=== PATIENT | male | born 1955 | race Caucasian/White ===

== ENCOUNTER 2019-08-11 15:39 | Inpatient (IN) | payer OTHER ==
[~2019-08-11] VITALS: Ht 185.4 cm; Wt 112.3 kg
[~2019-08-11 15:39] MED LIST: ERGO400 PO; METF500 PO; Norco 10-325 T1 EACH PO; OMEPRAZOLE20 MG PO; TAMS.4ER PO
--- NOTE | 2019-08-15 06:53 | NUR ---
INTO [facility] ADMISSION STARTED. Ambulatory in Day Surgery History, Chart, Medications and Allergies reviewed before start of procedure.Lungs clear T/O to Auscultation. Patient confirms NPO status and agrees with scheduled surgery.
--- NOTE | 2019-08-15 16:30 | NUR ---
RATES PAIN AT 5/10, PT ASSISTED TO AMBULATE DOWN THE EAST, AMBULATED ABOUT 200 FEET WITH A WALKER, TOLERATED WELL, ASSISTED BACK TO ORTHO CHAIR, POLAR PACK PLACED.
--- NOTE | 2019-08-15 17:29 | NUR ---
REPORT GIVEN TO SALOME CROSS TO ASSUME CARE.
--- NOTE | 2019-08-15 17:52 | NUR ---
CARE ASSUMED OF PT AT APPROXIMATELY 1730. PT ALERT AND ORIENTED. PT COMPLAINING OF 9/10 PAIN, MEDICATED WITH DILAUDID. PT TOLERATING DINNER. WILL CONTINUE TO MONITOR.
--- NOTE | 2019-08-15 19:15 | NUR ---
SHIFT SUMMARY PAIN HAS BEEN MANAGED WITH PO AND IV PAIN MEDICATION SINCE CARE WAS ASSUMED. PT ALERT, ORIENTED AND PLEASANT. PT SITTING UP TO THE CHAIR AND REPORTS COMFORT AT THIS TIME. VSS. REPORT GIVEN TO LISETTE MCMAHON.
[2019-08-16 04:25] LABS: BASOPHILS ABSOLUTE AUTO 0.02 K/mm3 (0.00-0.23); BASOPHILS PERCENT AUTO 0 % (0-2); EOSINOPHILS ABSOLUTE AUTO 0.02 K/mm3 (0.00-0.68); EOSINOPHILS PERCENT AUTO 0 % (0-6); Hematocrit 34.3 % (37.0-53.0); IMMATURE GRAN ABSOLUTE AUTO 0.08 K/mm3 (0.00-0.10); IMMATURE GRAN PERCENT AUTO 1 % (0-1); LYMPHOCYTES ABSOLUTE AUTO 2.22 K/mm3 (0.84-5.20); LYMPHOCYTES PERCENT AUTO 15 % (21-46); MONOCYTES ABSOLUTE AUTO 1.58 K/mm3 (0.16-1.47); MONOCYTES PERCENT AUTO 11 % (4-13); Mean Corpuscular HGB 32.5 pg (26.0-34.0); Mean Corpuscular Volume 93 fL (80-100); Mean Platelet Volume 9.8 fL (9.1-12.4); NEUTROPHILS ABSOLUTE AUTO 11.01 K/mm3 (1.96-9.15); NEUTROPHILS PERCENT AUTO 74 % (41-73); Platelet Count 301 K/mm3 (150-400); RDW Coefficient Variation 12.1 % (11.7-14.2); RDW Standard Deviation 40.8 fL (35.1-46.3); Red Blood Cell Count 3.69 M/mm3 (4.30-5.90); White Blood Cell Count 14.93 K/mm3 (4.00-11.30)
[2019-08-16 04:46] LABS: Anion Gap 4 mmol/L (6-16); Blood Urea Nitrogen 19 mg/dL (8-24); Bun/Creatinine Ratio 21.6 (12.0-20.0); CO2, Blood 27 mmol/L (21-32); Calcium, Blood 8.3 mg/dL (8.5-10.1); Chloride, Blood 105 mmol/L (98-108); Creatinine, Blood 0.88 mg/dL (0.60-1.20); Glomerular Filtration Rate >60 (60-); Glucose, Blood 137 mg/dL (70-99); Potassium, Blood 4.1 mmol/L (3.5-5.5); Sodium, Blood 136 mmol/L (136-145)
--- NOTE | 2019-08-16 07:36 | NUR ---
SHIFT SUMMARY PT EATING AND DRINKING. PT VOIDING. PT BEEN ASSISTED WITH ADL'S PRN. PT BEEN MED FOR PAIN PRN.
[2019-08-16] MEDS ORDERED: Norco 10-325 T1 EACH PO (09:52)
[2019-08-16] MEDS ORDERED: Aspir 8181 MG PO (09:53)
--- NOTE | 2019-08-16 10:08 | NUR ---
0745 PAIN PATIENT REPORTS THAT DUE TO BEING ON CHRONIC PAIN MEDS THE PO MEDS ARE NOT ADEQUATE AND HE REQUESTS IV PAIN MEDS IN ADDITION. EDUCATION PROVIDED TO PATIENT REGARDING THAT WE WILL MEDICATE TO CONTROL PAIN TO ACCEPTABLE LEVEL BUT WISH TO MANAGE PAIN MUCH POSSIBLE WITH PO MEDS PRIOR TO DISCHARGE HE WILL NOT BE ABLE TO RECEIVE IV MEDS POST DISCHARGE. REJI PARIKH ARRIVED TO ROOM AND ALSO DISCUSSED PAIN MANAGEMENT WITH PATIENT AND PATIENT IS I AGREEMENT WITH PAIN MANAGEMENT PLAN
--- NOTE | 2019-08-16 11:36 | NUR ---
1100 patient states he needs an additional norco prescription before discharge discussed with patient that he can call dr motley office to request furhter prescription for pain meds. contacted Wilberto Pulliam per patient request for additional pain med prescription. Per Catalina instruction patient is to contact Dr Motley office if he requires an additional prescription [id number] patient discharged to home with his brother
== END 2019-08-16 11:32 | disposition home or self-care (01) | DRG 470 ==
LOC: SURS 08-15 06:11 → PRE IP 08-15 07:30 → SURS 08-15 11:01
PROVIDERS: ADMIT Orthopaedic Surgery
PROC: 0SRB04A Replacement of Left Hip Joint with Ceramic on Polyethylene Synthetic Substitute, Uncemented, Open Approach (ICD-10-PCS; principal; 2019-08-15 07:30)
DX: M16.12 Unilateral primary osteoarthritis, left hip (principal); K21.9 Gastro-esophageal reflux disease without esophagitis; N40.0 Benign prostatic hyperplasia without lower urinary tract symptoms; G89.29 Other chronic pain; E66.9 Obesity, unspecified; Z68.32 Body mass index [BMI] 32.0-32.9, adult; Z79.1 Long term (current) use of non-steroidal anti-inflammatories (NSAID); Z79.899 Other long term (current) drug therapy
CPT/HCPCS: 36415; 72170; 80048; 82947; 85025; 86850; 86900; 86901; 88300; 97110; 97116; 97161; 97530; C1776; J0171; J0690; J0735; J1100; J1170; J1815; J1885; J2250; J2405; J2704; J2795; J3010; J7120

== ENCOUNTER 2019-10-23 09:29 | Inpatient (IN) | payer OTHER ==
[~2019-10-23] VITALS: Ht 185.4 cm; Wt 110.9 kg
[~2019-10-23 09:29] MED LIST changes: +Aspir 8181 MG PO
[2019-10-24] MEDS ORDERED: Norco 10-325 T1 EACH PO (08:40)
--- NOTE | 2019-10-24 08:58 | NUR ---
Ambulatory in Day Surgery History, Chart, Medications and Allergies reviewed before start of procedure.Lungs clear T/O to Auscultation. Patient confirms NPO status and agrees with scheduled surgery. Patient reports completing Chlorhexadine shower X2 prior to admission to hospital.Surgical site prepped with 2% Chlorhexidine cloth wipe.
--- NOTE | 2019-10-24 18:23 | NUR ---
SHIFT SUMMARY INITIALLY PT VERY ANXIOUS AND CONCERNED RE: PAIN MANAGEMENT BUT AFTER MED CHANGES BECAME MORE COMFORTABLE AND CALM. 1 IV BREAKTHRU DOSE GIVEN. WORKED WITH THERAPY, TOLERATING DIET, VOIDING.
--- NOTE | 2019-10-25 04:17 | NUR ---
SHIFT SUMMARY POD 1 RTHA. PT AAOX4, VSS. PT HAS AMBULATED IN HALLWAYS WITH FWW/GB. TOLERATED WELL. MEDICATED WITH DILAUDID 1MG X1 FOR BREATHROUGH PAIN, EDUCATED PT ON NEED TO TRANSITION TO ORAL PAIN MEDS FOR DISCHARGE. [facility] POLAR SPENCER IN PLACE. PT TOLERATING PO, HAS BEEN SLEEPING IN BED DURING SHIFT. PT HAS BEEN VOIDING.
[2019-10-25 04:27] LABS: BASOPHILS ABSOLUTE AUTO 0.02 K/mm3 (0.00-0.23); BASOPHILS PERCENT AUTO 0 % (0-2); EOSINOPHILS ABSOLUTE AUTO 0.01 K/mm3 (0.00-0.68); EOSINOPHILS PERCENT AUTO 0 % (0-6); Hematocrit 36.5 % (37.0-53.0); Hemoglobin 12.6 g/dL (13.5-17.5); IMMATURE GRAN ABSOLUTE AUTO 0.04 K/mm3 (0.00-0.10); IMMATURE GRAN PERCENT AUTO 0 % (0-1); LYMPHOCYTES ABSOLUTE AUTO 1.64 K/mm3 (0.84-5.20); LYMPHOCYTES PERCENT AUTO 11 % (21-46); MONOCYTES ABSOLUTE AUTO 1.39 K/mm3 (0.16-1.47); MONOCYTES PERCENT AUTO 9 % (4-13); Mean Corpuscular HGB 32.5 pg (26.0-34.0); Mean Corpuscular HGB Conc 34.5 g/dL (31.5-36.5); Mean Corpuscular Volume 94 fL (80-100); Mean Platelet Volume 9.8 fL (9.1-12.4); NEUTROPHILS ABSOLUTE AUTO 11.87 K/mm3 (1.96-9.15); NEUTROPHILS PERCENT AUTO 79 % (41-73); Platelet Count 321 K/mm3 (150-400); RDW Coefficient Variation 11.5 % (11.7-14.2); RDW Standard Deviation 39.6 fL (35.1-46.3); Red Blood Cell Count 3.88 M/mm3 (4.30-5.90); White Blood Cell Count 14.97 K/mm3 (4.00-11.30)
[2019-10-25 04:44] LABS: Anion Gap 6 mmol/L (6-16); Blood Urea Nitrogen 15 mg/dL (8-24); Bun/Creatinine Ratio 19.6 (12.0-20.0); CO2, Blood 26 mmol/L (21-32); Calcium, Blood 8.5 mg/dL (8.5-10.1); Chloride, Blood 104 mmol/L (98-108); Creatinine, Blood 0.76 mg/dL (0.60-1.20); Glomerular Filtration Rate >60 (60-); Glucose, Blood 146 mg/dL (70-99); Potassium, Blood 4.5 mmol/L (3.5-5.5); Sodium, Blood 136 mmol/L (136-145)
[2019-10-25] MEDS ORDERED: PERCOCET 10-321 EACH PO (09:22)
[2019-10-25] MEDS ORDERED: OXYC10ER PO (09:23)
[2019-10-25] MEDS ORDERED: ASPI81CH PO (09:24)
--- NOTE | 2019-10-25 11:48 | NUR ---
SHIFT SUMMARY PT HAS CLEARED THERAPY, STATES PAIN IS TOLERABLE BUT EXCITED TO HAVE NEW MEDICATION REGIMEN FOR BETTER RELIEF. TOLERATING DIET AND VOIDING EASILY. SCRIPTS AND DRSGS GIVEN. ESCORTED OUT VIA W/C.
== END 2019-10-25 11:42 | disposition home or self-care (01) | DRG 470 ==
LOC: SURS 10-24 08:11 → PRE IP 10-24 09:45 → SURS 10-24 14:32
PROVIDERS: ADMIT Orthopaedic Surgery
PROC: 0SR904A Replacement of Right Hip Joint with Ceramic on Polyethylene Synthetic Substitute, Uncemented, Open Approach (ICD-10-PCS; principal; 2019-10-24 09:45)
DX: M16.11 Unilateral primary osteoarthritis, right hip (principal); K21.9 Gastro-esophageal reflux disease without esophagitis; N40.0 Benign prostatic hyperplasia without lower urinary tract symptoms; E66.9 Obesity, unspecified
CPT/HCPCS: 36415; 72170; 80048; 82947; 85025; 86850; 86900; 86901; 88300; 97110; 97116; 97162; C1776; J0171; J0690; J0735; J1100; J1170; J1885; J2250; J2405; J2704; J2795; J3010; J7120